=== PATIENT | male | born 1955 | race Caucasian/White ===

== ENCOUNTER → 2017-03-08 | Day surgery (SDC) | payer BC ==
[~2017-03-08] MED LIST: Acetaminophen/Codeine 300-30 MG Tab PO PRN; Bupivacaine 0.5%/EPINEPHrine 1:200,000 50 ML MDV ONE; Dexamethasone 4 MG/ML SDV ONE; HYDROmorphone 0.5 MG/0.5 ML Syringe IVPUSH PRN; HYDROmorphone 1 MG/ML Syringe ONE; Ketorolac 30 MG/ML SDV ONE; Lactated Ringers 1,000 ML ONE; Lidocaine 1% 4 ML ONE; Lidocaine 1% with EPINEPHrine 1:100,000 20 ML MDV ONE; Lidocaine 1%/Sod Bicarbonate in NS 8.4% 1 ML Syringe IV PRN; Midazolam 1 MG/ML 2 ML SDV ONE; Ondansetron 4 MG/2 ML SDV IVPUSH PRN; Ondansetron 4 MG/2 ML SDV ONE; Propofol 200 MG/20 ML SDV ONE; Sodium Chloride 0.9% 10 ML Syringe FLUSH PRN; ceFAZolin 1 GM Vial ONE; ePHEDrine 50 MG/ML SDV IVPUSH PRN; ePHEDrine 50 MG/ML SDV ONE; fentaNYL 100 MCG/2 ML SDV IVPUSH PRN; fentaNYL 250 MCG/5 ML SDV ONE
[2017-03-08] MEDS: Lactated Ringers 1,000 ML IV SCH ×2 (07:19→11:17)
--- NOTE | 2017-03-08 07:32 | PCM.PREANE ---
Preanesthetic Assessment - Anesthesia/Transfusion/Family Hx Anesthesia History: Prior Anesthesia Without Reaction Family History of Anesthesia Reaction: No Transfusion History: Prior Transfusion Without Reaction Intubation History: Unknown - Review of Systems General: No Symptoms Pulmonary: No Symptoms (quit smoking 17 yrs ago.) Cardiovascular: No Symptoms (CAD/ stent placement 1998/ history of BPH) Gastrointestinal: No Symptoms (occasional GERD) Neurological: No Symptoms Other: Reports: None - Physical Assessment NPO Status Date: 03/07/17 NPO Status Time: 21:00 Pulse: 54 O2 Sat by Pulse Oximetry: 97 Respiratory Rate: 16 Blood Pressure: 135/86 Temperature: 36.6 C Height: 1.73 m Weight: 82 kg ASA Class: 2 Mental Status: Alert & Oriented x3 Airway Class: Mallampati = 2 Dentition: Reports: Normal Dentition, Caries Thyro-Mental Finger Breadths: 3 Mouth Opening Finger Breadths: 3 ROM/Head Extension: Full Lungs: Clear to Auscultation, Normal Respiratory Effort Cardiovascular: Regular Rate, Regular Rhythm, No Murmurs - Imaging/EKG Impressions: EKG: SB = 49, inferior infarct, old - Allergies Allergies/Adverse Reactions: Allergies Allergy/AdvReac Type Severity Reaction Status Date / Time amoxicillin Allergy Cannot Verified 03/07/17 13:55 Remember - Anesthesia Plan Pre-Op Medication Ordered: Beta Sander Beta Sander: Metoprolol Med Last Dose Date: 03/08/17 Med Last Dose Time: 06:00 - Acknowledgements Anesthesia Type Planned: General Anesthesia Pt an Appropriate Candidate for the Planned Anesthesia: Yes Alternatives and Risks of Anesthesia Discussed w Pt/Guardian: Yes Pt/Guardian Understands and Agrees with Anesthesia Plan: Yes PreAnesthesia Questionnaire - CURRENT (IN HOUSE) MEDS Current Meds: Current Medications Lactated Ringer's (Ringers, Lactated) 1,000 mls @ 125 mls/hr IV ASDIRECTED FERNANDO Stop: 03/08/17 23:00 Lidocaine/Sodium Bicarbonate (Buffered Lidocaine 1% In Ns 8.4%) 0.25 ml IV ONETIME PRN PRN Reason: Prior to IV Start Stop: 03/08/17 18:00 Sodium Chloride (Saline Flush) 10 ml FLUSH ASDIRECTED PRN PRN Reason: Keep Vein Open Stop: 03/08/17 18:00 Discontinued Medications Cefazolin Sodium (Ancef) Confirm Administered Dose 2 gm .ROUTE .STK-MED ONE Stop: 03/08/17 07:00 Dexamethasone (Dexamethasone) Confirm Administered Dose 8 mg .ROUTE .ST-MED ONE Stop: 03/08/17 07:00 Fentanyl (Sublimaze) Confirm Administered Dose 250 mcg .ROUTE .STK-MED ONE Stop: 03/08/17 07:01 Lidocaine HCl (Xylocaine-Mpf 1%) Confirm Administered Dose 4 mls @ as directed .ROUTE .ST-MED ONE Stop: 03/08/17 07:00 Lactated Ringer's (Ringers, Lactated) Confirm Administered Dose 1,000 mls @ as directed .ROUTE .[facility]-MED ONE Stop: 03/08/17 07:00 Ketorolac Tromethamine (Toradol) Confirm Administered Dose 30 mg .ROUTE .ST- MED ONE Stop: 03/08/17 07:00 Midazolam HCl (Versed 1 Mg/Ml) Confirm Administered Dose 2 mg .ROUTE .ST-MED ONE Stop: 03/08/17 07:01 Ondansetron HCl (Zofran) Confirm Administered Dose 4 mg .ROUTE .ST-MED ONE Stop: 03/08/17 07:00 Propofol (Diprivan 20 Ml) Confirm Administered Dose 200 mg .ROUTE .ST-MED ONE Stop: 03/08/17 07:01
--- NOTE | 2017-03-08 10:32 | PCM.POSTAN ---
POST ANESTHESIA ASSESSMENT - MENTAL STATUS Mental Status: Alert - VITAL SIGNS Pulse Rate: 79 SaO2: 88 Resp Rate: 12 Blood Pressure: 101/67 Temperature: 36.5 C - RESPIRATORY Respiratory Status: Respiratory Rate WNL, Airway Patent, O2 Saturation Stable ( Patient encouraged to DB and Cough), Supplemental Oxygen - CARDIOVASCULAR CV Status: Pulse Rate WNL, Blood Pressure Stable - GASTROINTESTINAL GI Status: No Symptoms - POST OP HYDRATION Hydration Status: Adequate & Stable
--- NOTE | 2017-03-08 10:33 | PCM.OPNOTE ---
- General Post-Op/Procedure Note Date of Surgery/Procedure: 03/08/17 Operative Procedure(s): 1. Open right inguinal hernia repair with mesh. 2. Bilateral hydrocelectomies. 3. Excision of cord lipoma Findings: 1. Indirect right inguinal hernia with cord lipoma 2. Bilateral hydroceles multiloculated left greater than right Pre Op Diagnosis: 1. Symptomatic right inguinal hernia. 2. Symptomatic bilateral scrotal hydroceles Post-Op Diagnosis: 1. Indirect right inguinal hernia. 2. Cord lipoma. 3. Bilateral multiloculated scrotal hydroceles Anesthesia Technique: General ET Tube Primary Surgeon: Mango Botello Pathology: None EBL in mLs: 5 Complications: None Condition: Good Free Text/Narrative:: After adequate LMA general anesthesia was obtained the patient's right groin and scrotum were prepped and draped sterilely for the procedures. An incision was made over the right inguinal canal after local analgesia was given to the skin and subcutaneous tissues down to the external oblique fascia. This structure was opened in the direction of its fibers. The spermatic cord was mobilized at the pubic tubercle and controlled with a Rossana drain. There was an indirect hernia sac deep to the cremaster muscle which was from the cord structures along with a cord lipoma. The cord lipoma was clamped at its base then amputated and secured with 3-0 Vicryl. I opened the sac which contained some bladder fat. The redundant sac was excised and I closed the base with a 2-0 silk purse string suture. The hernia was then reduced and I placed a Prolene mesh in the floor of the inguinal canal using 2-0 Prolene to secure the mesh to the internal oblique fascia and the shelving edge of the inguinal ligament. A keyhole was used for cord egress. I Irrigated out the field with saline and then closed the external oblique fascia after replacing the cord structures in the canal with a running 3-0 Vicryl. Sarah's and the skin was closed with Vicryl as well. Steri-Strips and gauze were used for the dressing. An incision was made in the midline raphae of the scrotum with a 15 blade. This incision was deepened in the midline with cautery. I entered the left hemiscrotum and mobilized the large multiloculated hydrocele. The hydrocele contained straw-colored fluid. I excised the redundant hydrocele tissue. I pexed the testicle in the left hemiscrotum with 3-0 Vicryl at it 6 o'clock position and the 3 o'clock position. I then entered the right hemiscrotum sharply and mobilized the right testicle and hydrocele. These hydroceles were smaller than the left. The hydroceles were opened and I drained a straw-colored fluid and excised the redundant hydrocele tissue. The right testicle was pexed at the 6 and 9 o'clock position. I closed the testicle in layers with a 3-0 Vicryl ending with a 4-0 subcuticular Vicryl and Dermabond for the dressing. Hemostasis throughout this part of the case was obtained with cautery. There were no complications.
--- NOTE | 2017-03-08 12:16 | PCM48HPAN ---
Post Anesthesia Note - EVALUATION WITHIN 48HRS OF ANESTHETIC Vital Signs in Normal Range: Yes Patient Participated in Evaluation: Yes Respiratory Function Stable: Yes Airway Patent: Yes Cardiovascular Function Stable: Yes Hydration Status Stable: Yes Pain Control Satisfactory: Yes Nausea and Vomiting Control Satisfactory: Yes Mental Status Recovered: Yes
== END | disposition home or self-care (01) ==
LOC: JD.SDS 07:00
PROVIDERS: ATTEND Surgery
DX: K40.90 Unilateral inguinal hernia, without obstruction or gangrene, not specified as recurrent (principal); N43.3 Hydrocele, unspecified; D17.6 Benign lipomatous neoplasm of spermatic cord; I10 Essential (primary) hypertension; N40.0 Benign prostatic hyperplasia without lower urinary tract symptoms; Z88.1 Allergy status to other antibiotic agents; Z79.82 Long term (current) use of aspirin; Z79.899 Other long term (current) drug therapy; Z95.5 Presence of coronary angioplasty implant and graft
CPT/HCPCS: 36415; 49505; 55041; 80048; 93005; A9270; C1781; J0690; J1100; J1170; J2250; J2405; J3010; J7120; 00920; J1885; J2704

== ENCOUNTER 2023-08-16 06:53 | Day surgery (SDC) | payer MEDICARE, BC ==
[~2023-08-16 06:53] MED LIST changes: -Acetaminophen/Codeine 300-30 MG Tab PO PRN; -Bupivacaine 0.5%/EPINEPHrine 1:200,000 50 ML MDV ONE; -Dexamethasone 4 MG/ML SDV ONE; -HYDROmorphone 0.5 MG/0.5 ML Syringe IVPUSH PRN; -HYDROmorphone 1 MG/ML Syringe ONE; -Ketorolac 30 MG/ML SDV ONE; -Lactated Ringers 1,000 ML ONE; -Lidocaine 1% 4 ML ONE; -Lidocaine 1% with EPINEPHrine 1:100,000 20 ML MDV ONE; -Lidocaine 1%/Sod Bicarbonate in NS 8.4% 1 ML Syringe IV PRN; -Midazolam 1 MG/ML 2 ML SDV ONE; -Ondansetron 4 MG/2 ML SDV IVPUSH PRN; -Ondansetron 4 MG/2 ML SDV ONE; -Propofol 200 MG/20 ML SDV ONE; +Sodium Chloride 0.9% 10 ML Syringe FLUSH SCH; -ceFAZolin 1 GM Vial ONE; -ePHEDrine 50 MG/ML SDV IVPUSH PRN; -ePHEDrine 50 MG/ML SDV ONE; -fentaNYL 100 MCG/2 ML SDV IVPUSH PRN; -fentaNYL 250 MCG/5 ML SDV ONE
[2023-08-16] MEDS ORDERED: Lactated Ringers 1,000 ML IV SCH (07:00)
[2023-08-16] MEDS ORDERED: fentaNYL 250 MCG/5 ML SDV ONE (07:19)
[2023-08-16] MEDS ORDERED: Propofol 200 MG/20 ML SDV ONE (07:19)
[2023-08-16] MEDS ORDERED: HYDROmorphone 0.5 MG/0.5 ML Syringe ONE (07:20)
[2023-08-16] MEDS ORDERED: Ketorolac 30 MG/ML SDV ONE ×2 (07:21→08:58)
[2023-08-16] MEDS ORDERED: Lidocaine 1% 5 ML VIAL ONE (07:21)
[2023-08-16] MEDS ORDERED: Metoclopramide 10 MG/2 ML SDV ONE (07:22)
[2023-08-16] MEDS ORDERED: Rocuronium 50 MG/5 ML Vial ONE (07:22)
[2023-08-16] MEDS ORDERED: HYDROmorphone 0.5 MG/0.5 ML Syringe IVPUSH PRN (07:37)
[2023-08-16] MEDS ORDERED: Ondansetron 4 MG/2 ML SDV IVPUSH PRN (07:37)
[2023-08-16] MEDS ORDERED: fentaNYL 100 MCG/2 ML SDV IVPUSH PRN (07:37)
[2023-08-16] MEDS: Gabapentin 300 MG Cap PO SCH (07:38)
[2023-08-16] MEDS: Acetaminophen 325 MG Tab PO SCH (07:38)
[2023-08-16] MEDS: Clindamycin Phosphate in D5W 900 MG in Premix Bag 1 BAG IV ONE (08:12)
[2023-08-16] MEDS ORDERED: ePHEDrine 50 MG/ML SDV ONE (08:30)
[2023-08-16] MEDS: EPINEPHrine 1 MG/ML SDV ONE (08:47)
[2023-08-16] MEDS: Lidocaine 1% 30 ML SDV ONE (08:47)
[2023-08-16] MEDS: Bupivacaine 0.5% 30 ML SDV ONE (08:47)
[2023-08-16] MEDS ORDERED: EPINEPHrine 1 MG/ML SDV ONE (08:58)
== END 2023-08-16 13:50 | disposition home or self-care (01) ==
LOC: JD.SDS 06:53
PROVIDERS: ATTEND Surgery
DX: Z12.11 Encounter for screening for malignant neoplasm of colon (principal); K40.21 Bilateral inguinal hernia, without obstruction or gangrene, recurrent; I25.10 Atherosclerotic heart disease of native coronary artery without angina pectoris; E78.5 Hyperlipidemia, unspecified; Z79.82 Long term (current) use of aspirin; Z79.899 Other long term (current) drug therapy; K59.00 Constipation, unspecified; Z87.891 Personal history of nicotine dependence
CPT/HCPCS: A9270-GY; C1727; C1781; J0171; J0665; J0736; J1170; J1885; J2704; J2765; J3010; J3490; J7120